=== PATIENT | male | born 1955 | race African-American/Black ===

== ENCOUNTER 2016-09-03 14:48 | Emergency (ER) | payer MEDICARE ==
--- NOTE | ~2016-09-03 | CR63 ---
[facility] A Service of [facility] & [facility] RADIOLOGY TEXT RESULTS PATIENT: MAGALY VIDAL SR LOCATION: CFTX : 53 UNIT #: [id number] AGE: [address]: Hermila Gray APRN SEX: M ORDER DR: [id number] [facility] [address] [place], [place] [address] [id number] E MR#: [id number] Acc #: [id number] NAME: MAGALY VIDAL SR : 1955 SEX: M STUDY DATE/TIME: 09/03/2016 14:55 UNIT: TX ROOM: STUDY DESCRIPTION: CR Chest 2 View Attending Physician: Hermila Gray A.P.R.N. Ordering Physician: Ed Bin Chavez M.D. Primary Care Physician: [facility], [facility] MEDICAL IMAGING REPORT This report is preliminary unless electronic signature is present EXAM Chest x-ray 09/03 INDICATIONS Shortness of air, cough, congestion for the last 2-3 days. History of hypertension. FINDINGS 2 views of the chest are compared with 01/19/2015. Cardiac and mediastinal contours are normal. Lungs are clear. No pneumothorax is seen. IMPRESSION No active disease. Dictated by... Taurus James Jr., M.D. THIS IS AN ELECTRONICALLY VERIFIED REPORT Taurus James Jr., M.D. at 09/04/2016 8:10 AM IFEANYI/philomena TD: 09/03/2016 19:37 JOB #: [id number] MEDICAL IMAGING REPORT Page 1 of 1 COPY
[~2016-09-03 14:48] MED LIST: ALLERGY MED; CERTAGEN PO; DIOVAN HCT 80/11 TAB; FLEXERIL; FLOMAX0.4 MG; GINSENG; GLUCOVANCE 1.251 TAB; LIPITOR; ULTRAM PO
== END 2016-09-03 15:38 | disposition home or self-care (01) ==
LOC: CFTX 14:48
DX: J30.9 Allergic rhinitis, unspecified (principal)
CPT/HCPCS: 71020; 99283

== ENCOUNTER → 2017-02-27 | Outpatient (CLI) | payer MEDICARE ==
--- NOTE | ~2017-02-27 | CT3 ---
[facility] A Service of [facility] & [facility] RADIOLOGY TEXT RESULTS PATIENT: MAGALY VIDAL LOCATION: CNUC : 53 UNIT #: [id number] AGE: [address]: Chris Juan MD SEX: M ORDER DR: [id number] [facility]. [place], [place] [address] [id number] O MR#: [id number] Acc #: [id number] NAME: MAGALY VIDAL : 1955 SEX: M STUDY DATE/TIME: 02/27/2017 9:34 UNIT: CNUC ROOM: STUDY DESCRIPTION: CT Abd and Pelv WWo Cont Attending Physician: Chris Juan M.D. Referring Physician: Chris Juan M.D. Ordering Physician: Chris Juan M.D. Primary Care Physician: [facility], [facility] MEDICAL IMAGING REPORT This report is preliminary unless electronic signature is present EXAM Abdomen and pelvis CT without and then with contrast, 02/27/2017. INDICATIONS 61-year-old male with a history of prostate cancer. Prostatic radiation seed placement in 2004, hypertension and diabetes. Hiatal hernia. Prostate cancer follow up. TECHNIQUE Noncontrast CT of the abdomen and pelvis was performed followed by contrast enhanced imaging of the abdomen and pelvis. The examination was ordered and performed as requested. This CT exam was performed with one or more of the following radiation dose reduction techniques: automatic exposure control, adjustment of mA and/or kV according to patient size, and iterative reconstruction. COMPARISON We have no comparison studies. FINDINGS NONCONTRAST CT OF ABDOMEN: Included lung bases are clear. There is some minimal pleural thickening in the posterior right lower lobe. There is old healed granulomatous disease. No effusion. Aorta demonstrates atherosclerotic change. Granulomatous calcifications in the spleen and liver. 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 The right renal moiety has a 2 mm nonobstructing stone in the midpole region. Ureters unremarkable. CT PELVIS: Prostatic seeds present. Bladder unremarkable. No drainable fluid collection in the pelvis. [facility] A Service of [facility] & [facility] RADIOLOGY TEXT RESULTS PATIENT: MAGAL[facility]IDAL [id number] 53 UNIT #: [id number] AGE: [address]: Chris Juan MD SEX: M ORDER DR: CONTRAST ENHANCED ABDOMEN: Aorta demonstrates no aneurysm or dissection. Spleen unremarkable. There is mild adrenal thickening on the left likely reflecting mild hyperplasia. Pancreas unremarkable. Gallbladder demonstrates small amount of sludge. Mild fatty infiltration of the liver. The horseshoe kidney is otherwise unremarkable. No adenopathy. Probable reactive tiny retroperitoneal nodes. CT PELVIS: Bladder unremarkable. There is no pelvic adenopathy. Reactive-appearing pelvic sidewall lymph nodes bilaterally. Bowel unremarkable. No inguinal adenopathy or fluid collection. Probable reactive inguinal nodes present bilaterally. Tiny right inguinal hernia contains fat. Osseous structures demonstrate no suspicious bone lesion. IMPRESSION 1. No clearly acute process in the abdomen or pelvis. 2. Horseshoe kidney which is an anatomic variant. 2 mm nonobstructing stone in the right renal moiety. 3. Sequela of prostatic seed placement. No distinct adenopathy. No suspicious bone lesion. 4. Fatty infiltration of the liver. 5. Appendix normal. Dictated by... Brian Wilkins M.D. THIS IS AN ELECTRONICALLY VERIFIED REPORT Brian Wilkins M.D. at 02/28/2017 6:50 AM Angelika TD: 02/27/2017 19:20 JOB #: [id number] MEDICAL IMAGING REPORT Page 1 of 1 COPY
--- NOTE | ~2017-02-27 | NM8 ---
[facility] A Service of [facility] & [facility] RADIOLOGY TEXT RESULTS PATIENT: MAGALY VIDAL LOCATION: CN : 53 UNIT #: [id number] AGE: [address]: Chris Juan MD SEX: M ORDER DR: [id number] [facility]. [place], [place] [address] [id number] O MR#: [id number] Acc #: [id number] NAME: MAGALY VIDAL : 1955 SEX: M STUDY DATE/TIME: 02/27/2017 11:56 UNIT: [facility] ROOM: STUDY DESCRIPTION: NJ Bone or Joint Whole Body Attending Physician: Chris Juan M.D. Referring Physician: Chris Juan M.D. Ordering Physician: Chris Juan M.D. Primary Care Physician: [facility], [facility] MEDICAL IMAGING REPORT This report is preliminary unless electronic signature is present EXAM Whole-body bone scan HISTORY A 61-year-old male complains of knee pain recently diagnosed with prostate cancer 2 weeks ago. Normal PSA. FINDINGS There is a comparison CT abdomen and pelvis 02/27/2017 FINDINGS Whole-body selected spot images of the axial and appendicular skeleton following intravenous administration 29.9 mCi technetium 99m MDP. Examination demonstrates increased uptake within the right knee involving both the medial and patellofemoral compartments. It is compatible with underlying arthritic change. There is also increased uptake in the left knee patellofemoral compartment. Increased uptake is seen in the right shoulder in the region of the AC joint and may reflect AC joint arthropathy. No abnormal uptake identified within the long bones pelvis ribs or spine to suggest osseous metastatic disease. Bilateral renal activity normal bladder activity noted. There is close approximation of the lower poles of both kidneys consistent with the patient's horseshoe kidney, best demonstrated on recent CT scan. IMPRESSION 1. No bone scan findings to suggest osseous metastatic disease. 2. Degenerative uptake in the right knee and to a lesser extent left knee and also within the right AC joint. Dictated by.Narendra Layton M.D. [facility] A Service of [facility] & [facility] RADIOLOGY TEXT RESULTS PATIENT: MAGALY VIDAL [id number] 53 UNIT #: [id number] AGE: [address]: Chris Juan MD SEX: M ORDER DR: THIS IS AN ELECTRONICALLY VERIFIED REPORT Yessi Layton M.D. at 02/28/2017 4:03 PM Joshua TD: 02/28/2017 04:50 JOB #: [id number] MEDICAL IMAGING REPORT Page 1 of 1 COPY
[2017-02-27 13:06] LABS: POC - CREATININE 1.33 mg/dL (0.64-1.27); POC - GFR >60.0 mL/min (>60)
== END | disposition home or self-care (01) ==
LOC: CNUC 02-20 09:30
PROVIDERS: Urology
DX: C61 Malignant neoplasm of prostate (principal); Q63.1 Lobulated, fused and horseshoe kidney; N20.0 Calculus of kidney; K76.0 Fatty (change of) liver, not elsewhere classified; R94.8 Abnormal results of function studies of other organs and systems
CPT/HCPCS: 74178; 78306; 82565; A9503; Q9967